=== PATIENT | female | born 1980 | race Caucasian/White ===

== ENCOUNTER → 2017-01-01 | Outpatient (CLI) | payer OTHER ==
--- NOTE | 2017-01-01 12:17 | RADIOLOGY REPORT (SQ) ---
EXAM DESCRIPTION: U/S NON-OB PELVIS TV W/O DOP COMPLETED DATE/TIME: 01/01/2017 11:05 am REASON FOR STUDY: PELVIC AND PERINEAL PAIN R10.2 PELVIC AND PERINEAL PAIN COMPARISON: None. TECHNIQUE: Dynamic and static grayscale images acquired of the pelvis via transvaginal approach and recorded on PACS. Additional selected color Doppler and spectral images recorded. LIMITATIONS: None. FINDINGS: UTERUS: Contour normal. No mass. ENDOMETRIAL STRIPE: No focal or generalized thickening. No masses. CERVIX: No nabothian cysts. RIGHT OVARY: No abnormal masses. RIGHT OVARY DOPPLER: Normal arterial vascular flow without evidence for torsion. LEFT OVARY: No abnormal masses. LEFT OVARY DOPPLER: Normal arterial vascular flow without evidence for torsion. FREE FLUID: None noted. OTHER: Trace amount of free fluid in the posterior cul-de-sac. MEASUREMENTS: UTERUS: 9.6 x 5.2 x 4.4 cm ENDOMETRIAL STRIPE: 7.5 mm RIGHT OVARY: 3.7 x 2.2 x 1.8 cm LEFT OVARY: 2.7 x 1.7 x 2.1 cm IMPRESSION: NORMAL TRANSVAGINAL PELVIC ULTRASOUND. TECHNICAL DOCUMENTATION: JOB ID: [id number]- All Rights Reserved
== END ==
LOC: RAD 10:27
PROVIDERS: ATTEND Nurse Practitioner
DX: R10.2 Pelvic and perineal pain (principal)
CPT/HCPCS: 76830